=== PATIENT | female | born 1940 | race Caucasian/White ===

== ENCOUNTER → 2017-12-28 | Outpatient (CLI) | payer MEDICARE, OTHER ==
[~2017-12-28] MED LIST: ACETAMINOPHEN500 MG PO; ALBU90OI61 INH; AMLO5; ASPI81CH PO; ASPI81EC; ATOR40TA PO; Amitiza8 MCG PO; CALCIUM GLUCONA PO; CARV25 PO; CIPR500 PO; CLOP75 PO; DOCU100 PO; ESTR1; FAMO20 PO; FOLI1 PO; Guanfacine HCl2 MG PO; HYDR1TAB94 PO; HYDSUL200 PO; INSULIN PUMP; IRON325 MG PO; LEVFLO500 PO; LISHYD2012; LISI20 PO; Lovastatin20 MG PO; MAGNESIUM CITR125 MG PO; METR500 PO; METTREX2.5 PO; OMEP10ER; POTA8; POTCHL10ER PO; PROLIA60 MG/1 ML SQ; Prilosec Otc20 MG PO; ROFE12.5; TUMS PO; Tenex1 MG PO; URSO300 PO; VENL75; VERA240ER PO
[2017-12-30 14:42] LABS: Stool Occult Bld Immuno 1 Negative (NEGATIVE); Stool Occult Bld Immuno 2 Negative (NEGATIVE)
== END | disposition home or self-care (01) ==
LOC: OLS 14:47
PROVIDERS: Internal Medicine Gastroenterology
DX: Z12.11 Encounter for screening for malignant neoplasm of colon (principal)
CPT/HCPCS: 82274

== ENCOUNTER → 2018-01-07 | Outpatient (CLI) | payer MEDICARE, OTHER | LOC: LAB EV 14:03 | DX: E10.42 Type 1 diabetes mellitus with diabetic polyneuropathy (principal) | CPT/HCPCS: 82043 ==

== ENCOUNTER 2018-07-01 16:27 | Emergency (ER) | payer OTHER, MEDICARE ==
[~2018-07-01] VITALS: Ht 157.5 cm; Wt 58.1 kg
[~2018-07-01 16:27] MED LIST changes: -ATOR40TA PO; -CIPR500 PO; -FAMO20 PO; -HYDR1TAB94 PO; -MAGNESIUM CITR125 MG PO; -METR500 PO; -TUMS PO; -Tenex1 MG PO
[2018-07-01] MEDS ORDERED: Tenex1 MG PO (17:10)
[2018-07-01] MEDS ORDERED: METTREX2.5 PO (17:16)
[2018-07-01] MEDS ORDERED: ATOR40TA PO (17:17)
[2018-07-01] MEDS ORDERED: MAGNESIUM CITR125 MG PO (17:19)
[2018-07-01] MEDS ORDERED: HYDR1TAB94 PO (18:28)
[2018-07-04] MEDS ORDERED: TUMS PO (16:36)
[2018-07-04] MEDS ORDERED: Tenex1 MG PO (16:36)
[2018-07-05] MEDS ORDERED: FAMO20 PO (13:55)
[2018-07-05] MEDS ORDERED: METR500 PO (13:56)
[2018-07-05] MEDS ORDERED: CIPR500 PO (13:56)
== END 2018-07-01 18:48 | disposition home or self-care (01) ==
LOC: ER 16:27
DX: S52.022A Displaced fracture of olecranon process without intraarticular extension of left ulna, initial encounter for closed fracture (principal); S20.211A Contusion of right front wall of thorax, initial encounter; Z79.01 Long term (current) use of anticoagulants; Z87.891 Personal history of nicotine dependence; Z79.82 Long term (current) use of aspirin; Z79.899 Other long term (current) drug therapy; V29.49XA Motorcycle driver injured in collision with other motor vehicles in traffic accident, initial encounter
CPT/HCPCS: 29105; 71046; 73080; 99283-25

== ENCOUNTER 2018-07-13 09:05 | Day surgery (SDC) | payer OTHER, MEDICARE ==
[~2018-07-13] VITALS: Ht 154.9 cm; Wt 58.1 kg
[~2018-07-13 09:05] MED LIST changes: +ATOR40TA PO; +CIPR500 PO; +FAMO20 PO; +HYDR1TAB94 PO; +MAGNESIUM CITR125 MG PO; +METR500 PO; +TUMS PO; +Tenex1 MG PO
== END 2018-07-13 18:46 | disposition home or self-care (01) ==
LOC: ORSCMMR 09:05
PROVIDERS: Orthopaedic Surgery
PROC: 0PSL04Z Reposition Left Ulna with Internal Fixation Device, Open Approach (ICD-10-PCS; principal; 2018-07-13 11:15)
DX: S52.032A Displaced fracture of olecranon process with intraarticular extension of left ulna, initial encounter for closed fracture (principal); I10 Essential (primary) hypertension; E10.42 Type 1 diabetes mellitus with diabetic polyneuropathy; J45.909 Unspecified asthma, uncomplicated; I25.10 Atherosclerotic heart disease of native coronary artery without angina pectoris; I25.2 Old myocardial infarction; Z79.01 Long term (current) use of anticoagulants; Z79.82 Long term (current) use of aspirin; Z79.4 Long term (current) use of insulin; Z79.899 Other long term (current) drug therapy
CPT/HCPCS: 82947; J0690; J2405; J3010; J7120

== ENCOUNTER 2019-07-14 09:17 | Day surgery (SDC) | payer MEDICARE, OTHER ==
[~2019-07-14] VITALS: Ht 157.5 cm; Wt 62.5 kg
[~2019-07-14 09:17] MED LIST changes: +Aspir 8181 MG PO; +CALCIUM 500 +1 EAC2 PO; +GUANFACINE HCL E1 MG PO; +IRBE150 PO; +PANT40 PO; +PROLIA60 MG/1 ML SC; +TUMS500 MG PO; +Vitamin D2000 UNIT PO
== END 2019-07-14 11:15 | disposition home or self-care (01) ==
LOC: ORSCSDS 09:17
PROVIDERS: Internal Medicine Gastroenterology
PROC: 0DB58ZX Excision of Esophagus, Via Natural or Artificial Opening Endoscopic, Diagnostic (ICD-10-PCS; principal; 2019-07-14 10:30)
PROC: 0DB68ZX Excision of Stomach, Via Natural or Artificial Opening Endoscopic, Diagnostic (ICD-10-PCS; principal; 2019-07-14 10:30)
DX: K74.69 Other cirrhosis of liver (principal); K44.9 Diaphragmatic hernia without obstruction or gangrene; E11.9 Type 2 diabetes mellitus without complications; Z87.891 Personal history of nicotine dependence; Z79.82 Long term (current) use of aspirin; Z79.899 Other long term (current) drug therapy
CPT/HCPCS: 82947; 87081; 88305; 88342; J2704; J7120

== ENCOUNTER → 2021-01-30 | Outpatient (CLI) | payer MEDICARE, OTHER | END | disposition home or self-care (01) | LOC: LAB SHORT 14:07 | DX: N39.0 Urinary tract infection, site not specified (principal) | CPT/HCPCS: 87077; 87086; 87186 ==

== ENCOUNTER 2021-03-21 15:28 | Emergency (ER) | payer MEDICARE, OTHER ==
[~2021-03-21] VITALS: Ht 157.5 cm; Wt 61.7 kg
[2021-03-21 16:58] LABS: BASOPHILS ABSOLUTE AUTO 0.08 K/mm3 (0.00-0.23); BASOPHILS PERCENT AUTO 1 % (0-2); EOSINOPHILS ABSOLUTE AUTO 0.57 K/mm3 (0.00-0.68); EOSINOPHILS PERCENT AUTO 10 % (0-6); Hemoglobin 13.3 g/dL (11.5-16.0); IMMATURE GRAN ABSOLUTE AUTO 0.02 K/mm3 (0.00-0.10); IMMATURE GRAN PERCENT AUTO 0 % (0-1); LYMPHOCYTES PERCENT AUTO 26 % (21-46); MONOCYTES ABSOLUTE AUTO 0.75 K/mm3 (0.16-1.47); MONOCYTES PERCENT AUTO 13 % (4-13); Mean Corpuscular HGB 28.2 pg (26.0-34.0); Mean Corpuscular HGB Conc 31.7 g/dL (31.5-36.5); Mean Corpuscular Volume 89 fL (80-100); Mean Platelet Volume 10.9 fL (9.1-12.4); NEUTROPHILS ABSOLUTE AUTO 2.93 K/mm3 (1.96-9.15); NEUTROPHILS PERCENT AUTO 50 % (41-73); Platelet Count 348 K/mm3 (150-400); RDW Coefficient Variation 15.3 % (11.7-14.2); RDW Standard Deviation 50.5 fL (35.1-46.3); Red Blood Cell Count 4.71 M/mm3 (3.80-5.20); White Blood Cell Count 5.85 K/mm3 (4.00-11.30)
[2021-03-21 17:17] LABS: Alanine Aminotransfer (ALT/SGP 17 U/L (12-78); Albumin, Blood 3.5 g/dL (3.4-5.0); Alk Phos 143 U/L (50-136); Anion Gap 4 mmol/L (6-16); Aspartate Aminotrans (AST/SGOT 15 U/L (12-37); Bilirubin, Total 0.5 mg/dL (0.1-1.0); Blood Urea Nitrogen 10 mg/dL (8-24); Bun/Creatinine Ratio 14.4 (12.0-20.0); CO2, Blood 30 mmol/L (21-32); Calcium, Blood 9.2 mg/dL (8.5-10.1); Chloride, Blood 106 mmol/L (98-108); Creatinine, Blood 0.69 mg/dL (0.40-1.00); Globulin, Blood 3.6 g/dL (2.2-4.0); Glomerular Filtration Rate >60 (60-); Glucose, Blood 119 mg/dL (70-99); Sodium, Blood 140 mmol/L (136-145); Total Protein, Blood 7.1 g/dL (6.4-8.2)
[2021-03-21] MEDS ORDERED: MECL12.5 PO (18:18)
== END 2021-03-21 19:08 | disposition home or self-care (01) ==
LOC: ER 15:28
PROVIDERS: Emergency Medicine
DX: I10 Essential (primary) hypertension (principal); R42 Dizziness and giddiness; Z88.0 Allergy status to penicillin; Z88.2 Allergy status to sulfonamides; Z88.8 Allergy status to other drugs, medicaments and biological substances; Z79.899 Other long term (current) drug therapy; Z87.891 Personal history of nicotine dependence
CPT/HCPCS: 36415; 80053; 85025; 93005; 93010; 99284-25; A9270

== ENCOUNTER 2021-10-31 06:52 | Day surgery (SDC) | payer MEDICARE, OTHER ==
[~2021-10-31] VITALS: Ht 157.5 cm; Wt 56.1 kg
[~2021-10-31 06:52] MED LIST changes: +MECL12.5 PO
--- NOTE | 2021-10-31 09:33 | NUR ---
10/31/21 0933 Gaurang Enriquez 5ML'S OF 0.9% INJ NACL ADDED TO 5ML'S OF 2% LIDOCAINE WITH EPI 1:100,000 TO ACHIEVE SOLUTION OF 1% LIDOCAINE WITH EPI 1:200,000.
--- NOTE | 2021-10-31 11:49 | NUR ---
10/31/[address] DR[address] ELVINE AWARE OF ELEVATED BP. MEDICATING PT PER ORDERS. PT RESTING IN CHAIR WITH EYES CLOSED. NO CONCERS AT THIS TIME. PT REPORTS NO PAIN. WILL CONTINUE TO MONITOR
== END 2021-10-31 13:49 | disposition home or self-care (01) ==
LOC: ORSCSDS 06:52
PROVIDERS: Otolaryngology
PROC: 0GTK0ZZ Resection of Thyroid Gland, Open Approach (ICD-10-PCS; principal; 2021-10-31 08:15)
PROC: 0GBJ0ZZ Excision of Thyroid Gland Isthmus, Open Approach (ICD-10-PCS; principal; 2021-10-31 08:15)
DX: C73 Malignant neoplasm of thyroid gland (principal); E11.9 Type 2 diabetes mellitus without complications; Z96.41 Presence of insulin pump (external) (internal); I10 Essential (primary) hypertension; I25.2 Old myocardial infarction; Z79.01 Long term (current) use of anticoagulants; Z79.82 Long term (current) use of aspirin; Z79.4 Long term (current) use of insulin; Z79.899 Other long term (current) drug therapy
CPT/HCPCS: 82947; 88307; 88342; J0360; J2250; J2704; J3010; J7120

== ENCOUNTER → 2023-01-08 | Outpatient (CLI) | payer MEDICARE, OTHER | END | disposition home or self-care (01) | LOC: LAB 15:01 → LAB SHORT 15:01 | DX: N39.0 Urinary tract infection, site not specified (principal) | CPT/HCPCS: 87077; 87086; 87186 ==